=== PATIENT | male | born 1995 | race Caucasian/White ===

== ENCOUNTER 2020-02-20 23:28 | Emergency (ER) | payer OTHER ==
[~2020-02-20] VITALS: Ht 177.8 cm; Wt 167.8 kg
[2020-02-21 00:50] LABS: INFLUENZA A ANTIGEN Negative (Negative); INFLUENZA B ANTIGEN Negative (Negative)
[2020-02-21] MEDS ORDERED: AUGMENTIN 875-1 EACH PO (01:41)
[2020-02-21] MEDS ORDERED: LORCET 5-325 M1 EACH PO (01:41)
[2020-02-21 02:03] VITALS: BP 148/59
== END 2020-02-21 02:03 | disposition home or self-care (01) ==
LOC: M.ERS 23:28
PROVIDERS: Emergency Medicine
DX: J02.0 Streptococcal pharyngitis (principal); Z20.828 Contact with and (suspected) exposure to other viral communicable diseases